=== PATIENT | male | born 1935 | race Caucasian/White ===

== ENCOUNTER 2023-06-25 15:01 | Outpatient (CLI) | payer MEDICARE, OTHER ==
[2023-06-25 16:05] LABS: Mean Corpuscular HGB CONC 34.2 g/dL (32.0-36.0); Mean Corpuscular Hemoglobin 31.5 pg (27.0-33.0); Mean Platelet Volume 9.7 fl (7.4-10.4); Platelet Count 159 10x3/uL (150-450); RBC Distribution Width 15.4 % (11.5-14.5); Red Blood Cell (RBC) Count 4.13 10x6/uL (4.32-5.72); White Blood Cell (WBC) Count 5.5 10x3/uL (3.5-10.5)
[2023-06-25 16:16] LABS: INR-International Normal Ratio 0.9; Prothrombin Time 9.8 sec (9.5-12.1)
[2023-06-25 17:26] LABS: Anion Gap 13 mmol/L (10-20); BUN (Urea Nitrogen) 17 mg/dL (8.4-25.7); Calc. Creatinine Clearance 0 mL/min (70-130); Calcium 8.7 mg/dL (7.8-10.44); Carbon Dioxide 23 mmol/L (23-31); Chloride 105 mmol/L (98-107); Estimated GFR 66; Glucose 150 mg/dL (83-110); Sodium 137 mmol/L (136-145)
== END 2023-06-25 15:02 | disposition home or self-care (01) ==
LOC: LABBT 15:01
PROVIDERS: ATTEND Urology
DX: Z01.818 Encounter for other preprocedural examination (principal); C61 Malignant neoplasm of prostate; N32.89 Other specified disorders of bladder; N28.1 Cyst of kidney, acquired; R80.9 Proteinuria, unspecified; R31.29 Other microscopic hematuria; Z90.79 Acquired absence of other genital organ(s)
CPT/HCPCS: 80048; 85027; 85610; 85730; 86850; 86900; 86901; 93005; 93010